=== PATIENT | female | born 1980 | race Caucasian/White ===

== ENCOUNTER 2021-11-05 12:45 | Outpatient (CLI) | payer BC | END 2021-11-05 12:46 | disposition home or self-care (01) | LOC: CSHLAB 12:45 | PROVIDERS: ATTEND Obstetrics & Gynecology | DX: Z01.812 Encounter for preprocedural laboratory examination (principal); Z20.822 Contact with and (suspected) exposure to COVID-19 | CPT/HCPCS: 84703; 85027; 86850; 86900; 86901; 87811 ==

== ENCOUNTER 2021-11-10 07:50 | Day surgery (SDC) | payer BC ==
[2021-11-05 14:09] LABS: Hemoglobin 12.8 g/dL (12.0-15.5); Mean Corpuscular HGB CONC 33.9 g/dL (32.0-36.0); Mean Corpuscular Hemoglobin 28.4 pg (27.0-33.0); Mean Platelet Volume 11.6 fl (7.4-10.4); Platelet Count 277 10x3/uL (150-450); White Blood Cell (WBC) Count 9.3 10x3/uL (3.5-10.5)
[2021-11-05 14:11] LABS: BHCG - Serum Negative (NEGATIVE); Pregs Control Background? CLEAR/WHITE (CLR/WHITE); Pregs Control Bar Appear? YES (CONTROL BAR)
[2021-11-06 11:46] VITALS: BMI 32.8
[2021-11-10] MEDS ORDERED: Gabapentin 300 MG CAP ONE (08:09)
[2021-11-10] MEDS ORDERED: CeleCOXIB 100 MG CAP ONE (08:10)
[2021-11-10] MEDS ORDERED: Famotidine/PF 20 mg/2ml Vial ONE (08:10)
[2021-11-10] MEDS ORDERED: Lidocaine 1% MPF 2 ML VIAL ONE (08:10)
[2021-11-10] MEDS ORDERED: Scopolamine 1.5 mg/72 hour Patch ONE (08:53)
[2021-11-10] MEDS ORDERED: Levofloxacin 500 mg/D5W 100 ml Premix Bag ONE (08:55)
[2021-11-10] MEDS ORDERED: Lidocaine 4% PF 5 ML AMP ONE (09:03)
[2021-11-10] MEDS ORDERED: Rocuronium Bromide 10 MG/ML (10ML VIAL) ONE (09:03)
[2021-11-10] MEDS ORDERED: Esmolol 100 MG/10 ML VIAL ONE (09:03)
[2021-11-10] MEDS ORDERED: Ondansetron PF 4 MG/2 ML Vial ONE ×2 (09:03→11:54)
[2021-11-10] MEDS ORDERED: PROPOFOL 20 ML ONE (09:03)
[2021-11-10] MEDS ORDERED: Dexamethasone 4 mg/ml Vial ONE (09:03)
[2021-11-10] MEDS ORDERED: Fentanyl 100 MCG/2 ML VIAL ONE ×2 (09:03→11:54)
[2021-11-10] MEDS ORDERED: HYDROmorphone 0.5 MG/0.5 ML SYRINGE ONE (09:42)
[2021-11-10] MEDS ORDERED: SUGAMMADEX SODIUM 200 MG/2 ML VIAL ONE (09:42)
[2021-11-10] MEDS ORDERED: PROPOFOL 40 ML ONE (09:43)
[2021-11-10] MEDS ORDERED: Bupivacaine PF 0.5% 30 ML VIAL ONE (09:45)
[2021-11-10] MEDS ORDERED: EPINEPHrine 1 MG/ML AMP ONE (09:45)
[2021-11-10] MEDS ORDERED: Clindamycin/D5W 900 mg/50 ml Premix Bag ONE (10:09)
[2021-11-10] MEDS ORDERED: Meperidine HCl/PF 25 MG/ML VIAL ONE (11:54)
[2021-11-10] MEDS ORDERED: HYDROcodone/Acetaminophen 5/325 mg Tablet ONE (13:25)
== END 2021-11-10 14:40 | disposition home or self-care (01) ==
LOC: CSHSDC 07:50
PROVIDERS: ATTEND Obstetrics & Gynecology
PROC: 0UT94ZZ Resection of Uterus, Percutaneous Endoscopic Approach (ICD-10-PCS; principal; 2021-11-10)
PROC: 0UT74ZZ Resection of Bilateral Fallopian Tubes, Percutaneous Endoscopic Approach (ICD-10-PCS; principal; 2021-11-10)
DX: D06.9 Carcinoma in situ of cervix, unspecified (principal); N73.6 Female pelvic peritoneal adhesions (postinfective); Z88.1 Allergy status to other antibiotic agents; Z88.8 Allergy status to other drugs, medicaments and biological substances; Z20.822 Contact with and (suspected) exposure to COVID-19
CPT/HCPCS: 84703; 85027; 86850; 86900; 86901; 87811; 88307; C1776; J0171; J1100; J1170; J1956; J2175; J2405; J2704; J3010; J3490; S0020; S0028

== ENCOUNTER 2021-11-26 17:56 | Emergency (ER) | payer BC ==
[2021-11-26 19:03] LABS: #Basophils 0.2 10x3/uL (0.0-0.2); #Eosinphils 0.6 10x3/uL (0.0-0.5); #Monocytes 0.5 10x3/uL (0.0-1.1); #Neutrophils 5.9 10x3/uL (1.5-8.4); %Basophils 1.5 % (0.0-2.0); %Eosinophils 6.1 % (0.0-6.0); %Lymphocytes 30.2 % (18.0-47.0); %Monocytes 4.7 % (0.0-10.0); %Neutrophils 57.1 % (40.0-75.0); Hemoglobin 13.3 g/dL (12.0-15.5); Mean Corpuscular HGB CONC 33.9 g/dL (32.0-36.0); Mean Corpuscular Hemoglobin 27.7 pg (27.0-33.0); Mean Corpuscular Volume 81.7 fl (81.6-98.3); Mean Platelet Volume 11.3 fl (7.4-10.4); Platelet Count 347 10x3/uL (150-450); RBC Distribution Width 11.8 % (11.5-14.5); White Blood Cell (WBC) Count 10.3 10x3/uL (3.5-10.5)
[2021-11-26 19:15] LABS: ALT (SGPT) 11 U/L (8-55); AST (SGOT) 13 U/L (5-34); Albumin 4.5 g/dL (3.5-5.0); Alkaline Phosphatase 84 U/L (40-110); Anion Gap 13 mmol/L (10-20); BUN (Urea Nitrogen) 9 mg/dL (7.0-18.7); Bilirubin, Total 0.3 mg/dL (0.2-1.2); Calc. Creatinine Clearance 0 mL/min (70-130); Calcium 9.7 mg/dL (7.8-10.44); Carbon Dioxide 25 mmol/L (22-29); Chloride 104 mmol/L (98-107); Estimated GFR 88; Globulin 3.4 g/dL (2.4-3.5); Glucose 108 mg/dL (70-105); Potassium 3.4 mmol/L (3.5-5.1); Protein, Total 7.9 g/dL (6.0-8.3); Sodium 139 mmol/L (136-145)
== END 2021-11-26 20:39 | disposition home or self-care (01) ==
LOC: CSHERS 17:56
DX: N99.820 Postprocedural hemorrhage of a genitourinary system organ or structure following a genitourinary system procedure (principal); E03.9 Hypothyroidism, unspecified
CPT/HCPCS: 76856; 80053; 85025; 86900; 86901; 94760